=== PATIENT | female | born 1930 | race Caucasian/White ===

== ENCOUNTER 2016-11-14 11:59 | Inpatient (IN) | payer MEDICARE, MEDICAID ==
[~2016-11-14] VITALS: Ht 165.1 cm; Wt 59.9 kg
[2016-11-14] MEDS ORDERED: CO-E100C PO (13:26)
[2016-11-14] MEDS ORDERED: MILKSUS PO (13:26)
[2016-11-14] MEDS ORDERED: DILT180C74 PO (13:26)
[2016-11-14] MEDS ORDERED: ACID1CAP PO (13:26)
[2016-11-14] MEDS ORDERED: MAGN400T5 PO (13:26)
[2016-11-14] MEDS ORDERED: DRON40TA PO (13:26)
[2016-11-14] MEDS ORDERED: CARV3.12 PO (13:26)
[2016-11-14] MEDS ORDERED: BUME1TAB27 PO (13:26)
[2016-11-14] MEDS ORDERED: FOLI1TAB4 PO (13:26)
[2016-11-14] MEDS ORDERED: FERR325T3 PO (13:26)
[2016-11-14] MEDS ORDERED: PANT40TA2 PO (13:26)
[2016-11-14] MEDS ORDERED: LEXA1TAB PO (13:26)
[2016-11-14] MEDS ORDERED: VITA100067 PO (13:26)
[2016-11-14] MEDS ORDERED: ZOCO10TA PO (13:26)
[2016-11-14] MEDS ORDERED: CRANCAP10 PO (13:26)
[2016-11-14] MEDS ORDERED: APAP325T4 PO (13:26)
[2016-11-14] MEDS ORDERED: BENZ200C53 PO (13:26)
[2016-11-14] MEDS ORDERED: SITA50TAB PO (13:26)
[2016-11-14] MEDS ORDERED: PEPT262T2 PO (13:26)
[2016-11-14] MEDS ORDERED: K-TA1TAB PO (13:26)
[2016-11-14] MEDS ORDERED: MECL-86 PO (13:26)
[2016-11-14] MEDS ORDERED: VITA10002 PO (13:26)
[2016-11-14] MEDS ORDERED: ZOFR4TAB3 PO (13:26)
[2016-11-14] MEDS ORDERED: FLUT1SPR2 (13:26)
[2016-11-14] MEDS ORDERED: VITA500C10 PO (13:26)
[2016-11-14] MEDS ORDERED: SUCR1TA PO (13:26)
[2016-11-14] MEDS ORDERED: OMEG300C3 PO (13:26)
[2016-11-14] MEDS ORDERED: NS 1,000 ML IV SCH (14:00)
[2016-11-14 14:02] LABS: INR 0.99
--- NOTE | 2016-11-14 14:22 | REP ---
Portable chest, single AP view, the patient semi upright, 02:16 p.m.: Comparison 10/15/2016. There is a large infiltrate involving the inferior half of the right lung as an interval change. There is a large infiltrate in the inferior one third of the left lung, as an interval change. Cardiomegaly, sternotomy wires and dual-chamber pacemaker are again identified, unchanged. Impression: Bilateral infiltrates. Cardiomegaly, sternotomy wires and pacemaker. Surgical clips are again incidentally noted at the base of the neck bilaterally Signed by Raheem Otto MD 11/14/2016 02:13 P
[2016-11-14] MEDS ORDERED: MORPHINE 2 MG/ML 1ML SYRINGE IV PRN (15:45)
[2016-11-14] MEDS ORDERED: ELIQ2.5T PO (15:49)
[2016-11-14] MEDS ORDERED: ONDA4TAB5 PO (15:56)
--- NOTE | 2016-11-14 16:32 | REP ---
CT of the chest without IV contrast: Comparisons are the chest CT dated 08/29/2016 and portable plain film study of the chest earlier today. There is a large right pleural effusion, similar in size to the comparison CT of 08/29/2016, resulting in the increased radiodensity inferiorly in the right hemithorax on the portable study earlier today. There is a small left pleural effusion similar size to the comparison chest CT, resulting in the increased density inferiorly in the left lung on the portable study earlier today. There is compression atelectasis of the lung adjacent to each pleural effusion. There are patchy subsegmental confluent infiltrates in the right upper lobe, not present on the comparison CT. There are no left upper lobe infiltrates. Cardiomegaly and pacemaker are unchanged. In the upper abdomen there are calculi in the gallbladder. The gallbladder was not included on the comparison CT. The remainder of the visualized upper abdominal contents are unremarkable. Impression: Bilateral pleural effusions as described, unchanged from the CT of 08/29/2016. Multiple confluent patchy subsegmental infiltrates in the right upper lobe, not present on the comparison CT. Compression atelectasis of the lung adjacent to the pleural effusions is again identified. There is cholelithiasis. Cardiomegaly and pacemaker are unchanged. Signed by Raheem Otto MD 11/14/2016 04:23 P
--- NOTE | 2016-11-14 16:56 | HPE ---
DATE OF ADMISSION: 11/14/2016 Ms. Smith is a patient of Dr. Good. CHIEF COMPLAINT: Fall. SUMMARY OF HER PRESENTATION: This is an 86-year-old who last night was going to the bathroom around 1:30 to 2:00 a.m. like she does every night. She had recently moved her bed into a new position and was using her walker on an unfamiliar path and ran it into the door frame. She let go with one hand and fell down onto her left side and it hurt. She had difficulty getting up. She had some nausea and vomiting overnight, stayed down all night and was found this morning in her assisted-living situation. She was sent to the emergency department at [facility] for evaluation and was found to have a left hip fracture. She was transferred to [facility] Emergency Room for further evaluation and I was called for admission. She has not had significant pain since she has been in the emergency department. She does not have chest pain or shortness of breath. She does have a history of angina but has had a negative stress test which was done in February of 2016. She has ejection fraction of 49% as documented in February of 2016. She does not frequently have chest pain. She has a poor exercise tolerance. She walks around assisted-living with a walker but does not walk any great distance. PAST MEDICAL HISTORY: Notable for rib fracture, hypertension, congestive heart failure, left ventricular ejection fraction of 49%, upg-pbwtucf-ybwanaazm diabetes, history of anemia, history of recent gastrointestinal (GI) bleed with hospitalization, currently off anticoagulation for what is presumed to be underlying atrial fibrillation. She does have a ventricular pacemaker. She has had an aortic valve replacement which is not mechanical. She had a coronary artery bypass graft (CABG) approximately 14 years ago, bilateral carotid endarterectomies, hysterectomy, knee replacement in 2005, pacemaker placement two years ago, it looks like a ventricular pacer, toe joint replacement, tonsillectomy. FAMILY HISTORY: Unremarkable. SOCIAL HISTORY: She was of [place] descent. 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 ALLERGIES: She has allergies noted to DEMEROL, MILK, MSG, OPIATES which induce vomiting, PENICILLIN which induces vomiting. She does not tolerate PLAVIX. MEDICATIONS: At home are listed as: - Tylenol - vitamin C - Tessalon Perles - Bumex - Coreg - coenzyme Q12 - vitamin B12 - diltiazem ER 180 mg by mouth daily - Multaq 400 mg by mouth twice a day - Lexapro 10 mg by mouth at bedtime - ferrous sulfate 325 mg by mouth daily - Flonase inhaled daily - folic acid 1 mg daily - magnesium oxide daily - meclizine 25 mg daily - milk of magnesia - Zofran - Protonix - potassium chloride - simvastatin - Januvia - sucralfate - vitamin D - acidophilus - Pepto Bismol - cranberry plus vitamin C - Leonard-3 REVIEW OF SYSTEMS: Notable for no headache. No visual changes. No runny nose. No sore throat. She has been feeling well recently. She has not had any angina or shortness of breath recently. No abdominal pain. No urinary discomfort. Otherwise, unremarkable. PHYSICAL EXAMINATION: Temperature is 97.3, pulse 69, respiratory rate 16, blood pressure 175/90, 95% on room air. Intake and output is unremarkable at this point. She is awake, appropriately interactive, pleasantly conversant and reasonable historian, although she is dosing on and off during the examination. She is quite engaging and funny. Head is normocephalic. Pupils are equal, round, and reactive. Anicteric, noninjected. Mucous membranes are moist. Neck is supple. Breathing is symmetrically diminished without wheezes, rales, or rhonchi. No accessory muscle use. Heart is distant sounding, normal S1, S2. I do not appreciate a murmur, although I would anticipate hearing one. Abdomen is soft, doughy, nontender. Radial pulses are 2+. There is no lower extremity edema. LABORATORY DATA: There are laboratories available for me to review from [facility] which show a white cell count of 11.5, hemoglobin 11.9, and platelets 204. Sodium 143, potassium 4.1, chloride 100, carbon dioxide 28, BUN 25, creatinine 1.6, glucose of 172. CK and troponin negative, repeated negative here. Shoulder x-ray shows no fracture. Elbow x-ray shows no fracture. Left hip x-ray shows intratrochanteric fracture with varus deformity of the left hip. PT 13.4, INR 1.02, PTT 28.8. There was no chest x-ray done at the [facility]. EKG here shows what looks like underlying atrial flutter with V pacing. X-ray shows evidence of bilateral infiltrates, cardiomegaly, sternotomy wires and pacemaker. CT scan of the chest has been ordered to further evaluate. ASSESSMENT: This is an 86-year-old with left intratrochanteric hip fracture status post mechanical fall with significant past medical history. PLAN: 1. Orthopedic. The patient will require surgical correction of the left hip in order to resume her previous level of function. She is interested in pursuing that. I have consulted Dr. Morales in that regard. 2. Cardiovascular. The patient would appear to have decompensated heart failure based on the x-ray. On CT chest, there is no change from previous. Physical exam is unremarkable. She clinically does not have decompensated heart failure. There is no reason to further delay her procedure. She obviously, represents an increased risk for perioperative complications including myocardial infarction, stroke, pneumonia, prolonged recovery and even . I have discussed this with the very lucid and sharp patient and her daughter at bedside, 3. The patient has diabetes. She will be started on insulin during her stay. 4. The patient has a history of hypertension. We will put hold parameters on her medications. We will avoid angiotensin-receptor germán (ARB) and angiotensin-converting enzyme (RADHA) inhibitor for now. 5. Deep vein thrombosis (DVT) prophylaxis, per orthopedics. 6. The patient has doting family at bedside. UT[facility] PSYCHIATRIC CENTERHemant
[2016-11-14 17:04] LABS: BASO % 0.3 % (0.0-1.0); EOS % 0.3 % (0.0-3.0); LARGE UNSTAINED CELL # 0.1 K/mm3 (0.0-0.4); LARGE UNSTAINED CELL % 1.1 % (0.0-4.0); LYMPH # 0.9 K/mm3 (1.5-4.5); LYMPH % 7.1 % (24.0-44.0); MEAN CORPUSCULAR HEMOGLOBIN 31.2 pg (27.0-33.0); MEAN CORPUSCULAR HGB CONC 32.5 g/dl (32.0-36.5); MEAN CORPUSCULAR VOLUME 96.1 fl (80.0-96.0); MONO # 0.8 K/mm3 (0.0-0.8); MONO % 6.5 % (0.0-5.0); NEUTROPHILS # 10.3 K/mm3 (1.8-7.7); NEUTROPHILS % 84.6 % (36.0-66.0); PLATELET COUNT, AUTOMATED 213 k/mm3 (150-450); RED CELL DISTRIBUTION WIDTH 16.3 % (11.5-14.5); WHITE BLOOD COUNT 12.2 K/mm3 (4.0-10.0)
[2016-11-14 17:15] LABS: CALCIUM LEVEL 8.9 MG/DL (8.8-10.2); CREATININE FOR GFR 1.82 MG/DL (0.55-1.02); GLOMERULAR FILTRATION RATE 27.9 (>32); POTASSIUM SERUM 4.3 MEQ/L (3.5-5.1)
--- NOTE | 2016-11-14 20:10 | ECGEPIP ---
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
[2016-11-14] MEDS ORDERED: CARVedilol 3.125 MG TAB PO SCH (21:00)
[2016-11-14] MEDS ORDERED: DRONEDARONE 400 MG TAB (MULTAQ) PO SCH (21:00)
[2016-11-14 22:00] VITALS: BP 175/84
[2016-11-14] MEDS ORDERED: FUROSEMIDE 40 MG/4 ML VIAL (J1940) IV ONE (22:15)
[2016-11-14] MEDS ORDERED: ACETAMINOPHEN 325 MG TAB PO PRN (22:15)
[2016-11-14] MEDS: SIMVASTATIN 10 MG TAB PO SCH (23:17)
[2016-11-14] MEDS: PANTOPRAZOLE 40MG TAB (PROTONIX) PO SCH (23:17)
[2016-11-14] MEDS ORDERED: METOCLOPRAMIDE INJ 10MG/2ML VIAL (J2765) IV PRN (23:45)
--- NOTE | 2016-11-14 23:52 | IPNPDOC ---
Text Note Date of Service The patient was seen on 11/14/16. NOTE Evening resident and attending were paged that patient suddenly vomited after taking beta germán this evening. We have ordered stat EKG, cardiac makers, aspiration precaution and blood cultures x2. Will monitor closely for resolution of her symptoms. Patient has been discussed with Dr. Harrell. VS,Fishbone, I+O VS, Fishbone, I+O Laboratory Tests 11/14/16 16:36 Red Blood Count 3.88 L, Mean Corpuscular Volume 96.1 H, Mean Corpuscular Hemoglobin 31.2, Mean Corpuscular Hemoglobin Concent 32.5, Red Cell Distribution Width 16.3 H, Neutrophils (%) (Auto) 84.6 H, Lymphocytes (%) (Auto ) 7.1 L, Monocytes (%) (Auto) 6.5 H, Eosinophils (%) (Auto) 0.3, Basophils (%) ( Auto) 0.3, Neutrophils # (Auto) 10.3 H, Lymphocytes # (Auto) 0.9 L, Monocytes # (Auto) 0.8, Eosinophils # (Auto) 0.0, Basophils # (Auto) 0.0, Calcium Level 8.9 Vital Signs Date Time Temp Pulse Resp B/P (MAP) Pulse Ox O2 Delivery O2 Flow Rate FiO2 11/14/16 23:19 73 175/84 11/14/16 22:00 97.3 18 94 Nasal Cannula 2.0 GME ATTESTATION GME ATTESTATION My preceptor for this patient encounter was physically present in the building during the encounter and was fully available. As needed, all aspects of the patient interview, examination, medical decision making process, and medical care plan development were reviewed and approved by the preceptor. Preceptor is aware and concurs with the plan as stated in the body of this note and will attest to such by his/her cosignature. COURTNEY PARR DO Nov 14, 2016 23:52
[2016-11-14 23:54] VITALS: BP 135/75
[2016-11-15] MEDS: ONDANSETRON 4MG/2ML VIAL (J2405) IV PRN ×2 (00:26→21:43)
[2016-11-15 06:00] VITALS: BP 138/87
[2016-11-15] MEDS: METOPROLOL TART 25 MG TABLET PO SCH ×3 (06:00→18:54)
[2016-11-15] MEDS: ISOSORBIDE DIN (ISORDIL) 10 MG TAB PO SCH ×3 (06:00→21:46)
[2016-11-15 06:45] LABS: BASO % 0.4 % (0.0-1.0); EOS # 0.1 K/mm3 (0.0-0.50); EOS % 0.5 % (0.0-3.0); LARGE UNSTAINED CELL # 0.2 K/mm3 (0.0-0.4); LARGE UNSTAINED CELL % 1.5 % (0.0-4.0); LYMPH # 1.4 K/mm3 (1.5-4.5); LYMPH % 8.5 % (24.0-44.0); MEAN CORPUSCULAR HEMOGLOBIN 30.8 pg (27.0-33.0); MEAN CORPUSCULAR HGB CONC 32.3 g/dl (32.0-36.5); MEAN CORPUSCULAR VOLUME 95.2 fl (80.0-96.0); MONO % 6.7 % (0.0-5.0); NEUTROPHILS # 11.7 K/mm3 (1.8-7.7); NEUTROPHILS % 82.4 % (36.0-66.0); PLATELET COUNT, AUTOMATED 198 k/mm3 (150-450); RED CELL DISTRIBUTION WIDTH 16.6 % (11.5-14.5); WHITE BLOOD COUNT 14.2 K/mm3 (4.0-10.0)
[2016-11-15] MEDS ORDERED: CLINDAMYCIN 600 MG in APPROPRIATE DILUENT 1 EA IV SCH (07:00)
[2016-11-15 07:12] LABS: CALCIUM LEVEL 9.1 MG/DL (8.8-10.2); CREATININE FOR GFR 2.01 MG/DL (0.55-1.02); GLOMERULAR FILTRATION RATE 24.9 (>32); POTASSIUM SERUM 4.3 MEQ/L (3.5-5.1)
[2016-11-15] MEDS: CO-ENZYME Q10 50 MG CAP PO SCH (09:00)
[2016-11-15] MEDS: SUCRALFATE 1 GM TAB PO SCH ×2 (09:00→21:45)
--- NOTE | 2016-11-15 09:20 | CR ---
DATE OF CONSULTATION: 11/15/2016 Mrs. Smith is rather delightful, 86-year-old female who was admitted yesterday for hip fracture. I was asked to see the patient for cardiac clearance. The patient normally follows with Dr. 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 She has a history of coronary artery bypass surgery, in 2001, in [place] and reportedly had a nuclear stress test in February 2016 that was negative for ischemia. This is based on admission note. I was not able to find any document supporting this history. Patient was already cleared for surgery by Medicine but then anesthesia cancelled the procedure because there were concern about congestive heart failure. Patient does have bilateral pleural effusions on chest x-ray, right larger than left, and she also has very high brain natriuretic peptide (BNP). When I talked to the patient, she is lying virtually flat in the hospital bed. Denies any chest pain or shortness of breath. She says that at her baseline she is able to ambulate around her room in assisted living or senior facility without major difficulty. She does not recall having any recent cardiac problems. She did have relatively recent gastrointestinal (GI) bleeding that led to discontinuation of Eliquis. I am not sure about its timing. PAST MEDICAL HISTORY: 1. Coronary artery disease as above. 2. Carotid artery disease status post carotid endarterectomies. 3. History of sick sinus syndrome status post pacemaker placement (probably Biotronik). 4. Recent GI bleed. 5. History of bilateral pleural effusions that have known to be chronic. 6. Chronic systolic/diastolic CHF. SURGICAL HISTORY: 1. CABG and AVR 2. Carotid endarterectomies. 3. Hysterectomy. 4. Knee replacement 2005. 5. Pacemaker placement per patient about 4 years ago. 6. Tonsillectomy. 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 She is a and lives [place]. Her daughter reported lives nearby. FAMILY HISTORY: No longer relevant considering her age. She reports INTOLERANCE or ALLERGY to DEMEROL, MILK, OPIATES, PENICILLIN, and PLAVIX. HOME MEDICATIONS: - Tylenol - vitamin C - Bumex - Coreg (unclear dose) - Coenzyme Q12 - vitamin B12 - diltiazem extended release 180 - Multaq 400 twice a day - Lexapro 10 at bedtime - iron sulfate - Flonase - folic acid - magnesium - Zofran - Protonix - potassium - simvastatin - Januvia - sucralfate - vitamin D - Pepto-Bismol - [place]-3 fatty acids REVIEW OF SYSTEMS: She denies any history of stroke. She denies any recent fever. She did have an episode of vomiting last night. No abdominal pain. No recent chest pain. No syncope. No palpitations. Recent GI bleeding as above. No genitourinary symptoms. No recent peripheral edema. The rest is negative. PHYSICAL EXAMINATION: Patient is an elderly white female. She appears to be in no distress. Alert and oriented times three. Her jugular venous pulse (JVP) is at least 7 cm above clavicle. Lungs reveal diminished breath sounds over both bases, much more on the right than left. Heart exam reveals regular rhythm. There is paradoxically splitting second heart sound and there is high-pitched murmur best heard over left sternal border about 2-3/6 intensity. I do not appreciate gallop as such. Abdomen is soft, nontender. No peripheral edema. Peripheral pulses are weak but detectable. Neurologically, she is alert, oriented and appropriate and I do not appreciate any focal weakness. No skin lesions. Laboratory bolivar: As of this morning, hemoglobin is 12.3, hematocrit 38, platelet count 198,000 and WBC count 14.2. Basic metabolic panel: Sodium 143, potassium 4.3, BUN 35, creatinine 2 for calculated GFR 25 and glucose 160. She has several sets of cardiac enzymes as marginally elevated. Troponin at 0.25 but CK and CK-MB are negative. Her BNP was 3000. Chest x-ray and CT of the chest revealed bilateral pleural effusions, right bigger than left, with some patchy infiltrates in right upper lobe. There is presence of dual-chamber pacemaker. ECG reveals presence of atrial flutter with ventricular pacing. ASSESSMENT AND PLAN: Mrs. Smith is an 86-year-old female who has established CAD with remote history of coronary artery bypass surgery and reportedly relatively recent nuclear stress test in February 2016 negative for ischemia and demonstrating left ventricular ejection fraction (LVEF) 49%. She has what looks like underlying atrial fibrillation or flutter and is principally ventricularly paced. She now has a hip fracture and needs open reduction, internal fixation (ORIF). I spoke with Dr. Morales and it would be a fairly straightforward surgery. Estimated duration approximately 1 hour. I think it is probably prudent to wait at least 1 day with the surgery. I would obtain the relevant information from Dr. Good, most importantly the results of supposedly recent cardiac evaluation. I also am going to change her medicine somewhat. She does have congestive heart failure and consequently use of Multaq is relatively contraindicated. She in any case is in atrial fibrillation/flutter and the medicine has not been effective. I am also going to discontinue Cardizem and leave her on metoprolol for rate control purposes. Provided her hemoglobin stays stable and she does not have additional troponin elevation, I think we will probably let her go for surgery tomorrow as she certainly would have a very poor prognosis if not operated. If we can get the information by this afternoon, I would not object to proceed with surgery even this afternoon provided she and her family are aware of clearly increase risk on account of congestive heart failure and underlying coronary artery disease. I would apply a magnet over her pacemaker for the duration of cautery. ABBY
--- NOTE | 2016-11-15 09:39 | REP ---
Renal ultrasound: The kidneys are atrophic size. The right kidney measures 8.7 x 4.9 x 4.1 cm. Left kidney measures 8.6 x 3.6 x 4.8 cm. Renal cortical echogenicity is unremarkable bilaterally. There is no hydronephrosis, calculus, mass or cyst on the right or the left. Bladder ultrasound balloon The bladder is nondistended and cannot be evaluated at this time. Impression: The kidneys are atrophic size bilaterally. No hydronephrosis. Otherwise, negative renal ultrasound. Signed by Raheem Otto MD 11/15/2016 09:30 A
[2016-11-15] MEDS: PANTOPRAZOLE 40MG TAB (PROTONIX) PO SCH ×2 (10:18→21:45)
[2016-11-15] MEDS: MAGNESIUM OXIDE 400 MG TAB (MAG-OX) PO SCH (10:18)
[2016-11-15] MEDS: VITAMIN D 1,000 INTERNATIONAL UNITS TABLET PO SCH ×2 (10:18→21:45)
[2016-11-15] MEDS: FERROUS SULFATE 325MG TAB PO SCH (10:18)
[2016-11-15] MEDS: FOLIC ACID 1 MG TAB PO SCH (10:19)
[2016-11-15] MEDS: CYANOCOBALAMIN 500 MCG TAB PO SCH (10:19)
[2016-11-15] MEDS ORDERED: FUROSEMIDE 40 MG/4 ML VIAL (J1940) IV ONE (12:00)
--- NOTE | 2016-11-15 13:45 | REP ---
PORTABLE CHEST X-RAY: SINGLE VIEW. HISTORY: Status post thoracentesis. Comparison chest x-ray 11/14/2016. FINDINGS: Mild to moderate cardiomegaly is observed. Mitral annular calcification is seen. A bipolar pacemaker is seen in the right heart, and median sternotomy wires are noted. There is fairly heavy vascular calcification including the subclavian and axillary arteries bilaterally. There is no evidence of pneumothorax on either side. There are clips in the soft tissues of the neck bilaterally. IMPRESSION: Cardiomegaly. No evidence of pneumothorax. Signed by Mayito Hooper MD 11/15/2016 04:42 P
[2016-11-15 14:04] LABS: RBC PLEURAL FLUID < 10 (<10mm3 cells/uL); TNC PLEURAL FLUID 203 cells/uL (0-20)
[2016-11-15 14:11] LABS: BF DIFF IF INDICATED? YES (NO)
[2016-11-15 14:13] LABS: CC BF DIFF EXAM CYTOCENTRIFUGE
[2016-11-15 14:30] LABS: LDH, BODY FLUID 85 U/L (NOT ESTABLISHED); TOTAL PROTEIN, BODY FLUID 1.7 G/DL (NOT ESTABLISHED)
[2016-11-15] MEDS ORDERED: GLUCAGON FOR INJ 1 MG VIAL (J1610) SC PRN (15:45)
[2016-11-15] MEDS ORDERED: DEXTROSE 50% 50 ML SYRINGE IV PRN (15:45)
[2016-11-15] MEDS ORDERED: GLUCOSE 4 GM CHEW TABLET PO PRN (15:45)
[2016-11-15] MEDS: HumaLOG INSULIN (NovoLOG) PER UNIT SC SCH ×2 (18:54→21:00)
--- NOTE | 2016-11-15 20:42 | IPN ---
DATE: 11/15/2016 Patient seen and examined. Admitted yesterday with left intertrochanteric fracture. Currently patient comfortable. Reported hungry. Denies any shortness of breath, fevers, chills, chest pain, pressure, or discomfort. Baseline patient stated that she is ambulatory. Does have history of congestive heart failure (CHF). VITAL SIGNS: Temperature 97.1, pulse 78, respirations 18, blood pressure 120/80, pulse oximetry 94% on 2 liters nasal cannula. LABORATORY DATA: WBC 14.2, hemoglobin and hematocrit 12.3/38.1, platelets 198. Chemistry: Sodium 144, potassium 4.2, chloride 108, bicarbonate 25, BUN 35, creatinine 2.01. PHYSICAL EXAMINATION: GENERAL: Patient elderly, frail in no acute distress. HEENT: Normocephalic, atraumatic. PULMONARY: Diminished breath sounds, right lower base. No wheezes, rales, or rhonchi. CARDIAC: Regular rate and rhythm. Normal S1, S2. ABDOMEN: Soft and nontender. Positive bowel sounds. EXTREMITIES: No edema, bilateral lower extremities. Dorsalis pedis (DP), posterior tibialis (PT) pulses intact bilateral. ASSESSMENT AND PLAN: This is an 86-year-old female patient with underlying medical history of hypertension, rib fracture, congestive heart failure with systolic and diastolic dysfunction, ejection fraction (EF) of 35-40%, uvo-[id number] diabetes, history of anemia, and also recent gastrointestinal (GI) bleed with hospitalization. Subsequently anticoagulation was discontinued. Atrial fibrillation with also pacemaker. Had an aortic valve replacement, bioprosthetic. Coronary artery bypass graft (CABG) in the past, 14 years ago, bilateral carotid endarterectomy, hysterectomy, knee replacement 2005, pacemaker placement 2 years ago, admitted status post mechanical fall with left intertrochanteric fractures. 1. Left intertrochanteric fractures. Orthopedics has been consulted. Radiological image appreciated. Case discussed with cardiology, Dr. Townsend. Record obtained from Dr. Good and case also discussed with Dr. England. Patient does have multiple cardiac risks for surgery, including congestive heart failure (CHF), but given the alternative of not doing the surgery would mean significant pain and immobility, which will be terminal for the patient, patient and family are aware of the risk and have elected to proceed. Patient is intermediate to high risk for intermediate-risk procedure. Will hold patient's Multaq given is contraindicated in patient with CHF. Patient was diuresed today for CHF. Thoracentesis was done to optimize the patient. Coreg has been changed to metoprolol. Appreciate cardiology's assistance as well as nephrology's assistance in optimizing the patient. 2. Underlying history of CHF with systolic and diastolic dysfunction, EF of 35-40% with bioprosthetic aortic valve, atrial fibrillation with pacemaker. 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 Cardiology, Dr. Robledo, has been consulted. CT scan has been appreciated, status post thoracentesis. Patient is diuresed. Continue beta blockers. Patient is at increased risk of perioperative cardiac complications, and family is aware. Continue statin. 3. Hypertension. Continue metoprolol and Isordil. Monitor the blood pressure. Adjust as needed. 4. Dyslipidemia. Continue statin. 5. Diabetes, nns-ukafsxv-obzcreajv, holding oral medication. Insulin as per protocol. 6. Acute on chronic renal insufficiency, likely secondary to acute stress from the fall and fracture and also CHF. Nephrology has been consulted. Will monitor closely. Holding angiotensin-converting enzyme (RADHA) and angiotensin receptor blockers (ARBs). 7. Atrial fibrillation. Continue beta blockers. Patient has history of bleeding. Will hold anticoagulation at this time. 8. History of gastrointestinal (GI) bleed. Continue proton pump inhibitor (PPI) and Carafate. 9. Deep vein thrombosis (DVT) prophylaxis. Heparin subcutaneous, given patient now is at increased risk for DVT. Will hold heparin in the morning. DISPOSITION: Pending surgery.
[2016-11-15] MEDS: ACETAMINOPHEN TAB 650MG DOSE (2X325MG) PO PRN (21:44)
[2016-11-15] MEDS: ESCITALOPRAM OXALATE 10 MG TAB (LEXAPRO) PO SCH (21:45)
[2016-11-15] MEDS: SIMVASTATIN 10 MG TAB PO SCH (21:45)
[2016-11-15] MEDS: ASCORBIC ACID 500 MG TAB PO SCH (21:45)
[2016-11-15] MEDS: HEPARIN SOD (PORCINE) 5000 UNITS/ML VIAL SQ SCH (21:45)
[2016-11-15 22:00] VITALS: BP 137/75
[2016-11-16] VITALS (12 sets, daily range): BP systolic 130–165; BP diastolic 65–92; O2SAT 98–99
[2016-11-16] MEDS: METOPROLOL TART 25 MG TABLET PO SCH ×5 (01:29→18:29)
[2016-11-16] MEDS: HEPARIN SOD (PORCINE) 5000 UNITS/ML VIAL SQ SCH ×3 (06:00→21:08)
[2016-11-16] MEDS: ISOSORBIDE DIN (ISORDIL) 10 MG TAB PO SCH ×3 (06:00→21:10)
[2016-11-16 07:17] LABS: BASO % 0.2 % (0.0-1.0); EOS # 0.1 K/mm3 (0.0-0.50); EOS % 0.5 % (0.0-3.0); LARGE UNSTAINED CELL # 0.2 K/mm3 (0.0-0.4); LARGE UNSTAINED CELL % 1.5 % (0.0-4.0); LYMPH # 1.1 K/mm3 (1.5-4.5); MEAN CORPUSCULAR HGB CONC 32.9 g/dl (32.0-36.5); MEAN CORPUSCULAR VOLUME 94.3 fl (80.0-96.0); MONO # 0.9 K/mm3 (0.0-0.8); MONO % 7.8 % (0.0-5.0); NEUTROPHILS # 8.8 K/mm3 (1.8-7.7); PLATELET COUNT, AUTOMATED 175 k/mm3 (150-450); RED CELL DISTRIBUTION WIDTH 16.7 % (11.5-14.5); WHITE BLOOD COUNT 10.9 K/mm3 (4.0-10.0)
[2016-11-16 07:18] LABS: CALCIUM LEVEL 8.7 MG/DL (8.8-10.2); CREATININE FOR GFR 2.04 MG/DL (0.55-1.02); GLOMERULAR FILTRATION RATE 24.5 (>32)
[2016-11-16] MEDS: HumaLOG INSULIN (NovoLOG) PER UNIT SC SCH ×4 (07:30→21:11)
--- NOTE | 2016-11-16 08:17 | RO ---
DATE OF PROCEDURE: 11/15/2016 PREPROCEDURE DIAGNOSIS: Pleural effusion. POSTPROCEDURE DIAGNOSIS: Pleural effusion, right sided. PROCEDURE: Right sided thoracentesis. SURGEON: Dulce Maria Munoz MD PHYSICIAN SUPERVISING: Chato Chong DO SKI MAKER: ANESTHETIC: 1% local lidocaine. ESTIMATED BLOOD LOSS: Minimal. SEDATION: None. VENTILATION: None. DESCRIPTION OF PROCEDURE: Consent was obtained. A time out was done. Given the patient has a left sided intertrochanteric fracture, the patient was made to sit up on the bed with the patient's right shoulder elevated, ultrasound probe was used to detect fluids between the patient's ribs and site was cleaned with ChloraPrep and draped in a sterile manner. After marking the site with ultrasound guidance, 1% lidocaine was used for local anesthetic. First the superficial skin then deep injection, keeping negative pressure, stopped when clear yellow fluid was obtained. Subsequently, the need was removed. A blade was used to make a skin incision right above the patient's rib horizontally. Subsequently, thoracentesis catheter was inserted, stopped when fluid return was obtained and catheter was inserted over the needle and the trocar needle was removed. Approximately 950 mL of yellow clear fluid was removed. The procedure was terminated when no more fluid removal was possible. Fluid collection was sent. The catheter was removed with the patient exhaling. X-ray was obtained. The patient tolerated the procedure with no complications. X-ray negative for pneumothorax.
[2016-11-16] MEDS: FOLIC ACID 1 MG TAB PO SCH (08:30)
[2016-11-16] MEDS: FERROUS SULFATE 325MG TAB PO SCH (08:30)
[2016-11-16] MEDS: CO-ENZYME Q10 50 MG CAP PO SCH (08:30)
[2016-11-16] MEDS: SUCRALFATE 1 GM TAB PO SCH ×2 (08:30→21:10)
[2016-11-16] MEDS: VITAMIN D 1,000 INTERNATIONAL UNITS TABLET PO SCH ×2 (08:32→21:10)
[2016-11-16] MEDS: PANTOPRAZOLE 40MG TAB (PROTONIX) PO SCH ×2 (08:32→21:10)
[2016-11-16] MEDS: MAGNESIUM OXIDE 400 MG TAB (MAG-OX) PO SCH (08:32)
[2016-11-16] MEDS: CYANOCOBALAMIN 500 MCG TAB PO SCH (08:32)
[2016-11-16] MEDS ORDERED: PROPOFOL 200 MG/20 ML VIAL As Ordered ONE (09:37)
[2016-11-16] MEDS ORDERED: fentaNYL 100 MCG/2 ML INJECTION (J3010) As Ordered ONE (09:37)
[2016-11-16] MEDS ORDERED: LIDOCAINE 2% INJ 100 MG/5 ML SDV (FOR ANES.) As Ordered ONE (09:37)
[2016-11-16] MEDS ORDERED: MIDAZOLAM INJ 2 MG/2 ML VIAL (J2250) As Ordered ONE (09:38)
[2016-11-16] MEDS ORDERED: CLINDAMYCIN 600 MG/50 ML PREMIX BAG As Ordered ONE (09:46)
[2016-11-16] MEDS ORDERED: ceFAZolin 2 GM/D5W 50 ML IV BAG (J0690) As Ordered ONE (10:01)
[2016-11-16] MEDS ORDERED: KETAMINE HCL 200 MG/20 ML VIAL As Ordered ONE (10:06)
[2016-11-16] MEDS ORDERED: PHENYLephrine HCL 500 MCG/5 ML (100MCG/ML) SYRINGE (J2370) As Ordered ONE (10:46)
--- NOTE | 2016-11-16 11:49 | ECGEPIP ---
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
[2016-11-16] MEDS ORDERED: ONDANSETRON 4MG/2ML VIAL (J2405) IV PRN (12:30)
[2016-11-16] MEDS ORDERED: LR 1,000 ML IV SCH (12:30)
[2016-11-16] MEDS ORDERED: PERCOCET 5MG/325MG TAB PO PRN (12:30)
[2016-11-16] MEDS ORDERED: fentaNYL 100 MCG/2 ML INJECTION (J3010) IV PRN (12:30)
--- NOTE | 2016-11-16 12:31 | REP ---
Left hip: 13 views in the OR. History: ORIF left hip. 1 minute 48 seconds of fluoroscopy time is reported. Findings: A sequence of 13 last image hold fluoro spot radiographs of the left hip and femur document intramedullary justin and pin fixation for left hip fracture. Signed by Mayito Hooper MD 11/16/2016 02:47 P
[2016-11-16] MEDS: ACETAMINOPHEN TAB 650MG DOSE (2X325MG) PO PRN ×2 (14:46→19:04)
--- NOTE | 2016-11-16 17:04 | IPN ---
DATE: 11/16/2016 SUBJECTIVE: I saw Mrs. Smith in the recovery room shortly after she came from operating room (OR) after open reduction, internal fixation (ORIF). Apparently the surgery was uneventful from anesthesiology perspective. The patient was resting comfortably in horizontal position. She was still very somnolent and sedated and could not provide any reasonable history. OBJECTIVE: Blood pressure was 142/84, heart rate 70s. It was atrial fibrillation with ventricular pacing. Saturation was 100% on room air. Her jugular venous pulse (JVP) was quite high, at least 5-6 cm. Lungs though were reasonably clear and air movement was good. I did not sit up the patient for the test so the auscultation was somewhat limited. Heart exam is unchanged, reveals paradoxically splitting second heart sound and there is still murmur best heard over the precordial area about 2/6. Abdomen is soft, nontender. No significant peripheral edema was noted. LABORATORY As of this morning, her hemoglobin was 10.9, hematocrit 33, platelet count 175,000 and WBC count 10.9. Basic metabolic panel potassium four, BUN 43, creatinine two and glucose 125. ASSESSMENT AND PLAN: Mrs. Smith is an 86-year-old female who has established coronary artery disease with remote history of coronary artery bypass grafting and aortic valve replacement and at least moderate left ventricular systolic dysfunction and chronic systolic congestive heart failure. She presented with broken hip and underwent repair. The surgery itself was uneventful. Hemodynamically she remains stable and there are no problems with oxygenation. I believe she can return to [place] for recovery. I would recommend to continue beta blockers as is being done. We will watch her fluid balance and make sure that she does not get overly positive. She is not anticoagulated due to recent gastrointestinal (GI) bleeding. Her thrombotic risk is certainly very high as is the risk of stroke. Currently just prophylactic dose of heparin is being utilized, together with mechanical deep venous thrombosis (DVT) prophylaxis tools. I would recommend to get more records from Dr. Good to get a better idea what was the nature and how severe the GI bleeding and as to whether we can reintroduce anticoagulation. As far as the heart failure is concerned, her fluid balance is actually relatively neutral and her renal function holds steady. She is virtually asymptomatic so I do not believe that we have to introduce diuretics, especially because I am somewhat concerned about her poor oral intake. Once she starts eating and drinking properly, I think the medication can be reintroduced. She is on aspirin and beta germán and statin. ABBY
[2016-11-16] MEDS ORDERED: ceFAZolin 1GM INJ (J0690) IM SCH (18:00)
[2016-11-16] MEDS: ceFAZolin SOD 1 GM in D5W MINI-BAG PLUS 50 ML IV SCH (18:58)
[2016-11-16] MEDS: ASCORBIC ACID 500 MG TAB PO SCH (21:10)
[2016-11-16] MEDS: ESCITALOPRAM OXALATE 10 MG TAB (LEXAPRO) PO SCH (21:11)
[2016-11-16] MEDS: SIMVASTATIN 10 MG TAB PO SCH (21:11)
[2016-11-17] VITALS (20 sets, daily range): BP systolic 104–150; BP diastolic 57–71; O2SAT 91–100
[2016-11-17] MEDS: METOPROLOL TART 25 MG TABLET PO SCH ×4 (00:12→18:04)
[2016-11-17] MEDS ORDERED: ceFAZolin 1GM INJ (J0690) IV SCH (02:00)
[2016-11-17] MEDS: ceFAZolin SOD 1 GM in D5W MINI-BAG PLUS 50 ML IV SCH (02:30)
[2016-11-17] MEDS: ISOSORBIDE DIN (ISORDIL) 10 MG TAB PO SCH ×3 (05:01→22:49)
[2016-11-17] MEDS: HEPARIN SOD (PORCINE) 5000 UNITS/ML VIAL SQ SCH ×3 (05:02→22:50)
[2016-11-17 05:51] LABS: BASO % 0.1 % (0.0-1.0); EOS % 0.3 % (0.0-3.0); LARGE UNSTAINED CELL # 0.1 K/mm3 (0.0-0.4); LARGE UNSTAINED CELL % 1.7 % (0.0-4.0); LYMPH # 1.1 K/mm3 (1.5-4.5); LYMPH % 11.5 % (24.0-44.0); MEAN CORPUSCULAR HGB CONC 32.4 g/dl (32.0-36.5); MEAN CORPUSCULAR VOLUME 95.9 fl (80.0-96.0); MONO # 0.6 K/mm3 (0.0-0.8); MONO % 6.8 % (0.0-5.0); NEUTROPHILS # 6.6 K/mm3 (1.8-7.7); NEUTROPHILS % 79.5 % (36.0-66.0); PLATELET COUNT, AUTOMATED 168 k/mm3 (150-450); RED CELL DISTRIBUTION WIDTH 16.7 % (11.5-14.5); WHITE BLOOD COUNT 8.3 K/mm3 (4.0-10.0)
[2016-11-17 06:08] LABS: CALCIUM LEVEL 8.8 MG/DL (8.8-10.2); CREATININE FOR GFR 1.97 MG/DL (0.55-1.02); GLOMERULAR FILTRATION RATE 25.5 (>32); POTASSIUM SERUM 3.8 MEQ/L (3.5-5.1)
--- NOTE | 2016-11-17 06:59 | IPN ---
DATE: 11/16/2016 Patient seen and examined. Currently comfortable. Denies any chest pain or shortness of breath. Ready for operating room (OR) later today. Denies any chest pain, pressure, discomfort, shortness of breath. Nothing by mouth after midnight. VITAL SIGNS: Temperature 97.6, pulse 69, respirations 18, blood pressure 141/92, pulse oximetry 100% on 2 liters nasal cannula. LABORATORY DATA: WBC 10.9, hemoglobin and hematocrit (H and H) 10.9/33.1, platelets 175. Chemistry: Sodium 145, potassium 4, chloride 108, bicarbonate 25, BUN 43, creatinine 2.04. PHYSICAL EXAMINATION: GENERAL: Patient alert, comfortable, in no acute distress. HEENT: Normocephalic, atraumatic. Pale. PULMONARY: Diminished breath sounds bilateral. No wheezes, rales or rhonchi. CARDIAC: Regular rate and rhythm. Normal S1, S2. ABDOMEN: Soft, nontender. Positive bowel sounds. EXTREMITIES: No edema bilateral lower extremities. Dorsalis pedis (DP) and posterior tibial (PT) pulses intact. ASSESSMENT AND PLAN: This is an 86-year-old female patient with underlying medical history of hypertension, refractory congestive heart failure with systolic and diastolic dysfunction, ejection fraction (EF) of 35-40%, non-insulin dependent diabetes, history of anemia, also with gastrointestinal (GI) bleed, previously hospitalized for GI bleed, subsequently, anticoagulation was discontinued, has a pacemaker, aortic valve replacement with bioprosthetic valve, coronary artery bypass graft (CABG) in the past, 14 years ago, bilateral carotid endarterectomy, hysterectomy, knee replacement 2005, pacemaker placement two years ago, admitted status post mechanical fall with left intertrochanteric fracture. PROBLEMS: 1. Left anterior intertrochanteric fracture secondary to mechanical fall. Orthopedic consulted. Going for surgery later today. Case also discussed with cardiology, Dr. Townsend, who has obtained records from Dr. Good, patient's primary luggage maker and also discussed with Dr. England. Patient currently optimized for surgery. Thoracentesis has been done. Continue beta blockers. Postoperative management, attending status, weightbearing, as per orthopedic. Pain medication is as per orthopedics. Will discuss with orthopedic surgery in regards to deep venous thrombosis (DVT) prophylaxis. Currently, patient on heparin subcutaneously. 2. Underlying history of congestive heart failure (CHF). Systolic and diastolic dysfunction, ejection fraction (EF) of 35-40%, with bioprosthetic aortic valve. Atrial fibrillation with pacemaker. Records obtained from cardiology, Dr. Good's office. Cardiology, Dr. Townsend, has been consulted. CT scan has been appreciated. Status post thoracentesis. Fluids appreciated. Will continue to diurese the patient after surgery. Continue beta germán. Patient on metoprolol. Continue statin. 3. Hypertension. Continue metoprolol. Monitor blood pressure. Adjust as needed. 4. Dyslipidemia. Continue statin. 5. Diabetes. Not insulin dependent. Holding oral medication. Insulin as per protocol. Consistent carbohydrate diet. 6. Acute on chronic renal insufficiency. Likely secondary to acute stress after fall and fracture. Also with congestive heart failure (CHF). Nephrology has been consulted. Holding angiotensin-converting enzyme (RADHA) inhibitor inhibitors. Will continue to monitor. 7. Atrial fibrillation. Continue beta germán. Patient is not on anticoagulation due to history of gastrointestinal (GI) bleed. Might have to start anticoagulation given patient's deep venous thrombosis (DVT) prophylaxis after surgery. 8. History of gastrointestinal (GI) bleed. Continue proton pump inhibitor (PPI) and Carafate. 9. Deep venous thrombosis (DVT) prophylaxis. Currently, patient on heparin subcutaneously. Given increased risk of deep venous thrombosis (DVT), possibly will switch to alternative agent after discussing with orthopedics. DISPOSITION: Pending clinical improvement, physical therapy (PT).
[2016-11-17] MEDS: HumaLOG INSULIN (NovoLOG) PER UNIT SC SCH ×4 (08:36→21:00)
[2016-11-17] MEDS: CYANOCOBALAMIN 500 MCG TAB PO SCH (08:36)
[2016-11-17] MEDS: ASPIRIN 81 MG ENTERIC TAB PO SCH (08:37)
[2016-11-17] MEDS: VITAMIN D 1,000 INTERNATIONAL UNITS TABLET PO SCH ×2 (08:38→22:50)
[2016-11-17] MEDS: FERROUS SULFATE 325MG TAB PO SCH (08:38)
[2016-11-17] MEDS: FOLIC ACID 1 MG TAB PO SCH (08:38)
[2016-11-17] MEDS: ACETAMINOPHEN TAB 650MG DOSE (2X325MG) PO PRN ×3 (08:38→19:53)
[2016-11-17] MEDS: SUCRALFATE 1 GM TAB PO SCH ×2 (08:39→22:50)
[2016-11-17] MEDS: PANTOPRAZOLE 40MG TAB (PROTONIX) PO SCH ×2 (08:39→22:52)
[2016-11-17] MEDS ORDERED: BUMETANIDE 1 MG TAB PO SCH (09:00)
[2016-11-17] MEDS: CO-ENZYME Q10 50 MG CAP PO SCH (10:26)
[2016-11-17] MEDS: MOM 30ML SUSPENSION UDC PO SCH (10:26)
[2016-11-17] MEDS: MIRALAX *UNIT DOSE* 17GM PACKET PO SCH (10:27)
[2016-11-17] MEDS: SENOKOT S TAB PO SCH ×2 (10:27→21:00)
[2016-11-17] MEDS: FUROSEMIDE 40 MG/4 ML VIAL (J1940) IV SCH (10:39)
--- NOTE | 2016-11-17 11:01 | CR ---
DATE OF CONSULTATION: 11/14/2016 Seen in the emergency room (ER) at the request of Dr. Farr/ER and Dr. Vega/hospitalist service. CHIEF COMPLAINT: Left hip pain. HISTORY OF PRESENT ILLNESS: She fell at home at 2 o'clock in the morning. Was found at 6 o'clock in the morning. Transferred to [facility] by emergency medical services (EMS). Evaluated by Dr. Ang at [facility]. Appreciated to have left hip intertrochanteric fracture. Transferred to [facility]. Evaluated by ER. Hospitalist consult initiated. Hospitalist medical optimization initiated. The patient complained of left hip pain, inability to ambulate. Hospital health summary and medical record is reviewed, including medical history, such as atrial fibrillation, valve replacement, pacemaker placement, previous right hip fracture, and other medical issues. Recent history of gastrointestinal (GI) bleed. The patient's family and social history as outlined in the hospital; documentation is reviewed. IMAGING STUDIES: Intertrochanteric hip fracture left. CLINICAL EXAMINATION: She is alert, easily confused, but cooperative. She is accompanied by her daughter. The skin seems to be healthy in the face, upper and lower extremities. Complexion is slightly dusky. Normocephalic, atraumatic. No shortness of breath. No abdominal distention. Left lower extremity shortened, rotated, palpable pulse, sensate, wiggles toes. IMPRESSION: Left intertrochanteric hip fracture displaced. Multiple medical comorbidities. RECOMMENDATIONS: Discussed the case with Dr. Vega, hospitalist service. Medical optimization was tentative. Discussed the case with Dr. Vega and Dr. Elizabeth with anesthesia. CONCLUSION: The patient would require cardiac optimization. I talked to the patient, as well as the patient's daughter, with respect to the surgical intervention. The consent was completed and reviewed in detail, including humza discussion of the procedure proposed, which will be intramedullary nail. After the intramedullary nail fixing the left hip. The risks and benefits, including not limited to , blood clots, infection, need for more surgery, limp, and other issues were discussed. Daughter signed consent as power of mergers and acquisitions attorney. Initially placed on operating room schedule for 11/14/2016. However, need for cardiac optimization will delay surgery at least one day. Postoperatively, we may consider anticoagulation and will coordinate that with hospitalist service because of history of gastrointestinal (GI) bleed. For further details, please refer to medical record.
--- NOTE | 2016-11-17 12:42 | IPN ---
DATE: 11/17/2016 Ms. Smith is doing much better today. She was able to sit on the age of the bed and stand. She denies any cardiovascular symptoms. I was able to get a lot more information today because her granddaughter who is a physical therapist was at her bedside. Blood pressure 128/60, heart rate has been in the 60s and 70s, atrial fibrillation with ventricular pacing. She is afebrile. Saturation 93% to 95% on room air. Fluid balance yesterday was documented about 900 negative. Weight 62.3 kg. She is alert, oriented and appropriate. Her jugular venous pulse (JVP) is still at least 4 cm above the clavicle. Lungs are reasonably clear to auscultation, though I hear only occasional crackle, air movement is good though. Heart examination reveals a regular rhythm with paradoxically splitting second heart sound and murmur that is unchanged. Abdomen is soft, nontender. There is no peripheral edema. Neurologically, she is generally weak but otherwise no focal weakness is noted. LABORATORY DATA: CBC: Hemoglobin 10.4, hematocrit 32, platelet count 168,000. Basic metabolic panel: Potassium 3.8, BUN 46, creatinine 2 for GFR 25, and BNP 1850 which is actually improvement since admission. ASSESSMENT AND PLAN: Ms. Smith is an 86-year-old female who has chronic systolic congestive heart failure with chronic bilateral pleural effusions. She also has chronic ischemic heart disease. She underwent open reduction and internal fixation (ORIF) of left hip yesterday. It looks like she has been recovering so far uneventfully. There are several issues though. The biggest problem that I see is the lack of anticoagulation, not only for deep vein thrombosis (DVT) prophylaxis but also for prevention of stroke in the setting of atrial fibrillation. Today, I learned from her granddaughter that she suffered fairly massive gastrointestinal (GI) bleeding, actually in September of 2016 that required transfusion of several units of blood. We do not have details what was actually the findings on endoscopy, but I think it is probably prudent to continue withholding full anticoagulation. I think it can be restarted though fairly soon. I explained to the patient and her granddaughter that the risk of stroke is certainly very high in the long run. The second issue is that of management of atrial fibrillation. In general, she was on Multaq but unfortunately this medication is relatively contraindicated in the setting of congestive heart failure and it was not effective in preventing recurrences of atrial fibrillation. Consequently, it was discontinued and replaced with metoprolol. So far, she has been almost 100% ventricular paced, indicating that the rate control is good. She has no anginal symptoms. As far as congestive heart failure is concerned, she started eating and drinking today and consequently Dr. Munoz already started her on diuretics, which I agree with. I am going to sign off on her management. Please do not hesitate to contact me if additional assistance is desired. After her discharge, she will followup with Dr. Good who has been seeing her for years. ABBY
--- NOTE | 2016-11-17 14:22 | CR ---
DATE OF CONSULTATION: 11/15/2016 REASON FOR CONSULTATION: There is acute renal failure superimposed on chronic kidney disease and clearance for hip surgery. HISTORY OF PRESENT ILLNESS: This 86-year-old female who was admitted to [facility] yesterday due to left hip fracture caused by a fall at home. The patient is in need for hip surgery. She is noticed to have congestive heart failure and a serum creatinine of 2.0. A nephrology consultation was requested this morning for clearance for hip surgery. PAST MEDICAL AND SURGICAL HISTORY: Significant for: 1. History of longstanding diabetes. 2. Hypertension. 3. History of congestive heart failure with ejection fraction of about 49%. 4. History of atrial fibrillation. 5. History of anemia. 6. Recent history of GI bleed. 7. History of stage III to stage IV of chronic kidney disease. 8. History of bilateral pleural effusions greater on the right than the left. 9. History of coronary artery disease, status post CABG. 10. History of bilateral carotid endarterectomies. 11. History of pacemaker placement. PAST SURGICAL HISTORY: Past surgical history is significant for coronary artery bypass surgery, knee replacement, hysterectomy, bilateral endarterectomy of carotids, tonsillectomy, knee replacement and pacemaker placement. 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 She does not smoke or drink. Family history is negative for any genetic kidney disease. There is no history of end-stage renal disease. ALLERGIES: The patient has allergy to Demerol, MSG, milk and opiates. She also has history of allergy to penicillin and Plavix. Home medications. HOME MEDICATIONS: Her home medications include Tylenol, Bumex, Coreg, coenzyme Q 10, vitamin B12, Diltiazem ER 180 mg daily, Multaq 400 mg twice a day, Lexapro 10 mg daily, ferrous sulfate 325 mg daily, folic acid 1 mg daily, magnesium oxide 400 mg daily, Protonix 40 mg daily, simvastatin 10 mg at bedtime, Zofran 4 mg as needed for nausea, metoprolol, metoclopramide 5 mg every 6 hours as needed, metoprolol 25 mg every 6 hours, vitamin D 1000 units daily, Carafate 1 gram twice a day. REVIEW OF SYSTEMS: The patient denies any fever or chills. There is chronic shortness of breath. Ears, nose and throat are unremarkable. Cardiovascular system is significant for history of atrial fibrillation, congestive heart failure and coronary artery disease. She denies any chest pain or palpitations. Respiratory system is significant for bilateral pleural effusions and shortness of breath. She denies any hemoptysis or pleuritic type of chest pain. GI system is significant for recent history of GI bleed. She denies any abdominal pain, vomiting or diarrhea. system is negative for dysuria or hematuria. She currently has a Frey catheter in place. Endocrine system is significant for type 2 diabetes. There is no history of hypothyroidism. Psychosocial system is significant for depression. Neurological system is negative for seizures or stroke. Hematological system is significant for anemia with history of recent GI bleed. Skin is negative for rash or ulcers. Musculoskeletal system is significant for left hip fracture secondary to fall. She has chronic back pain. PHYSICAL EXAMINATION: Temperature 97 degrees Fahrenheit, heart rate 70 per minute and respiratory rate 18 per minute. Blood pressure 138/87 mmHg and oxygen saturation 94% on 2 liters oxygen. Head is atraumatic. Pupils are equal and reactive to light and sclera is anicteric. There is no oral thrush or ulcers in mucous membranes are moist and healthy. Neck is supple and JVD is only mildly elevated. There is no thyroid enlargement and trachea is midline. Heart: Sounds are irregular in rhythm and with a systolic murmur grade 2/6. There is no pericardial friction rub. Lungs: Have significantly diminished breath sounds at right lower one-third. She has bibasilar rales. Abdomen is soft and nontender. There is no palpable organomegaly and bowel sounds are normal. Extremities have no cyanosis or clubbing. Her left lower extremity is internally rotated. DIAGNOSTIC STUDIES: Her renal ultrasound done this morning showed a right kidney 8.7 cm and left kidney 8.6 cm in size without any hydronephrosis. Chest CT scan was done yesterday which showed bilateral pleural effusions right greater than the left. Subsegmental infiltrates in the right upper lobe and some compression atelectasis noted. There is also gallstones and cardiomegaly. PROBLEMS: 1. Acute kidney injury superimposed on chronic kidney disease. Her underlying chronic kidney disease is probably early stage III or early stage IV. Some worsening of kidney function is most likely related to congestive heart failure. She did receive one dose of Lasix yesterday. Her chest x-ray from yesterday did show some pulmonary vascular congestion and alveolar infiltrates. Her renal ultrasound did not show any hydronephrosis and she currently has a Frey catheter in place. From a renal standpoint, she has no contraindication for hip surgery. Her electrolytes are within normal range and she does not have any metabolic acidosis. 2. Congestive heart failure. Her volume status is probably slightly decompensated. BNP level was elevated. Her ejection fraction is known to be 49%. I will give her one more dose of Lasix 40 mg and monitor her closely. He is nothing by mouth so her intake is none at this point. r intake is none at this point. problem is bilateral pleural effusions. She has a large pleural effusion on the right side and I would recommend to do a thoracentesis prior to surgery in order to optimize her pulmonary status. I will not try to use high-dose diuretics because of risk of worsening kidney function and intraoperative or postoperative hypotension. 3. Anemia. Her anemia is not a problem at this point. She does have history of GI bleed recently. However at this point she seems to be doing well. I thank you for involving me in the care of Mrs. Smith. I will follow her along with you.
--- NOTE | 2016-11-17 15:23 | IPN ---
DATE: 11/17/2016 The patient is seen and examined. No acute events overnight. Postoperative day number one. Denies any chest pain, pressure or discomfort, fevers, or chills. VITAL SIGNS: Temperature 97.8, pulse 69, respirations 18, blood pressure 128/60, pulse oximetry 93% on two liters nasal cannula. LABORATORY DATA: WBC 8.3, hemoglobin and hematocrit 10.4/31.1, platelets 168. Chemistry: Sodium 144, potassium 3.8, chloride 106, bicarbonate 28, BUN 46, creatinine 1.9. PHYSICAL EXAMINATION: GENERAL: The patient is alert, comfortable, in no acute distress. HEENT: Normocephalic, atraumatic. Pale. PULMONARY: Diminished breath sounds bilaterally. No wheezes, rales or rhonchi. CARDIAC: Regular rate and rhythm with normal S1, S2. ABDOMEN: Soft, nontender. Positive bowel sounds. EXTREMITIES: No edema of bilateral lower extremities. Dorsalis pedis (DP) and posterior tibial (PT) pulses intact. ASSESSMENT AND PLAN: This is an 86-year-old female patient with underlying medical history of hypertension, refractory congestive heart failure with systolic and diastolic dysfunction, ejection fraction (EF) of 35% to 40%, [id number] diabetes, history of anemia, also with gastrointestinal (GI) bleed, previously hospitalized for GI bleed, subsequently anticoagulation was discontinued, has a pacemaker, aortic valve replacement with bioprosthetic valve, coronary artery disease with coronary artery bypass graft (CABG) 14 years ago, bilateral carotid endarterectomy, hysterectomy, knee replacement in 2005, pacemaker placement two years ago, admitted status post mechanical fall with left intertrochanteric fracture. PROBLEMS: 1. Left intertrochanteric fracture secondary to mechanical fall. Orthopedic consulted. Status post surgery. Weightbearing, pain regimen, and physical therapy as per orthopedic. Continue physical therapy. The patient potentially needs retirement placement. Continue beta blockers. On heparin for anticoagulation and will require it for four weeks. Given history of gastrointestinal (GI) bleed, we will leave the patient on heparin subcutaneous. 2. Underlying history of congestive heart failure with systolic and diastolic dysfunction, ejection fraction (EF) of 35% to 40%, bioprosthetic aortic valve, atrial fibrillation with pacemaker. Records obtained from cardiology, Dr. Good's office. Dr. Townsend has been consulted. The patient's Multaq has been discontinued. Currently on metoprolol. Status post CT thoracentesis. Fluids appreciated. Continue diuresis. Continue statin. Brain natriuretic peptide (BNP) appreciated. 3. Hypertension. Continue metoprolol, isosorbide dinitrate. Continue to monitor blood pressure. Adjust as needed. 4. Dyslipidemia. Continue statin. 5. Diabetes, [id number], type 2. Holding oral medication. Insulin as per protocol. Consistent-carbohydrate diet. 6. Acute on chronic renal insufficiency. Nephrology consulted. Likely secondary to stress of underlying disease versus cardiorenal. Followup with nephrology's recommendations. Monitor blood urea nitrogen (BUN), creatinine, and electrolytes. Avoid angiotensin-converting enzyme (RADHA) inhibitor and angiotensin-receptor blockers (ARBs). 7. Atrial fibrillation. Continue beta germán and metoprolol. Patient not on anticoagulation given history of GI bleed. 8. History of GI bleed. Continue proton pump inhibitor (PPI) and Carafate. 9. Deep venous thrombosis (DVT) prophylaxis. Heparin subcutaneously. Will require heparin subcutaneously for four weeks given increased risk of bleeding from recent GI bleed. Followup orthopedics as outpatient. DISPOSITION: Pending clinical improvement and physical therapy. Likely will need short-term rehabilitation versus longterm facility.
[2016-11-17] MEDS: ESCITALOPRAM OXALATE 10 MG TAB (LEXAPRO) PO SCH (22:49)
[2016-11-17] MEDS: SIMVASTATIN 10 MG TAB PO SCH (22:49)
[2016-11-17] MEDS: ASCORBIC ACID 500 MG TAB PO SCH (22:50)
[2016-11-18] MEDS: METOPROLOL TART 25 MG TABLET PO SCH ×3 (00:36→12:47)
[2016-11-18 05:28] VITALS: BP 133/63
[2016-11-18 05:34] LABS: BASO % 0.2 % (0.0-1.0); EOS # 0.1 K/mm3 (0.0-0.50); EOS % 1.3 % (0.0-3.0); LARGE UNSTAINED CELL # 0.1 K/mm3 (0.0-0.4); LARGE UNSTAINED CELL % 2.2 % (0.0-4.0); LYMPH # 1.2 K/mm3 (1.5-4.5); LYMPH % 15.8 % (24.0-44.0); MEAN CORPUSCULAR HEMOGLOBIN 31.4 pg (27.0-33.0); MEAN CORPUSCULAR HGB CONC 32.7 g/dl (32.0-36.5); MONO # 0.5 K/mm3 (0.0-0.8); MONO % 6.9 % (0.0-5.0); NEUTROPHILS # 4.8 K/mm3 (1.8-7.7); NEUTROPHILS % 73.5 % (36.0-66.0); PLATELET COUNT, AUTOMATED 147 k/mm3 (150-450); RED CELL DISTRIBUTION WIDTH 16.8 % (11.5-14.5); WHITE BLOOD COUNT 6.5 K/mm3 (4.0-10.0)
[2016-11-18 05:55] LABS: CALCIUM LEVEL 8.7 MG/DL (8.8-10.2); CREATININE FOR GFR 1.89 MG/DL (0.55-1.02); GLOMERULAR FILTRATION RATE 26.7 (>32); PHOSPHORUS LEVEL 3.1 MG/DL (2.5-4.9); POTASSIUM SERUM 3.6 MEQ/L (3.5-5.1)
--- NOTE | 2016-11-18 06:33 | IPN ---
DATE: 11/16/2016 SUBJECTIVE: The patient was not seen today morning. She had already left the room for the operating room (OR) by the time I entered the room. However, her labs, medications, and vital signs were reviewed today. OBJECTIVE: VITAL SIGNS: Today morning temperature 97.3 degrees Fahrenheit, blood pressure is 138/76, pulse 67, respiratory rate of 17. She was saturating 97% on room air. INTAKE AND OUTPUT: Urine output was 875 mL overnight. Weight in the bed scale is not available. PHYSICAL EXAMINATION: The patient was not examined today morning. She had already left the room. LABORATORY DATA: CBC showed WBC 10.9, hemoglobin 10.9, platelets of 175. BMP showed sodium 145, potassium four, chloride 108, bicarbonate 25, BUN 43, creatinine two. GFR 24.5. Calcium 8.7. MICROBIOLOGY: Blood cultures and body fluid cultures are negative so far. Pleural fluid Gram's stain was negative for any organisms. CURRENT INPATIENT MEDICATIONS: The patient's medications were all reviewed by me. There is no change in the medications today as compared with yesterday. She got one dose of Lasix 40 mg intravenous (IV) yesterday. ASSESSMENT: 86-year-old female with congestive heart failure, atrial fibrillation, recent left hip fracture, and pleural effusion status post thoracentesis with acute kidney injury on chronic kidney disease stage III. PLAN: 1. Congestive heart failure: The patient's brain natriuretic peptide (BNP) was more than 3000 two days ago. The patient was given a dose of Lasix 40 mg IV yesterday. She will be again evaluated after the surgery tomorrow and further need to give diuretics will be decided once the patient is evaluated after the surgery. 2. Acute kidney injury superimposed on chronic kidney disease: The patient's creatinine on admission was 1.8. It was two yesterday, and it is staying stable around two. Okay to continue the diuresis at this time. Rest of the change in medication will be done after patient is examined and evaluated at the bedside. 3. Left hip fracture. The patient has gone to the operating room (OR) for left hip surgery.
[2016-11-18] MEDS: HEPARIN SOD (PORCINE) 5000 UNITS/ML VIAL SQ SCH ×3 (07:03→19:37)
[2016-11-18] MEDS: ISOSORBIDE DIN (ISORDIL) 10 MG TAB PO SCH ×2 (07:04→13:13)
[2016-11-18] MEDS: ACETAMINOPHEN TAB 650MG DOSE (2X325MG) PO PRN ×4 (07:05→23:29)
[2016-11-18] MEDS: HumaLOG INSULIN (NovoLOG) PER UNIT SC SCH ×4 (07:15→20:55)
[2016-11-18 07:35] VITALS: BP 95/52
[2016-11-18] MEDS ORDERED: POTASSIUM CHLORIDE 10 MEQ SR TABLET PO ONE (08:15)
[2016-11-18] MEDS: MOM 30ML SUSPENSION UDC PO SCH (09:00)
[2016-11-18] MEDS: SENOKOT S TAB PO SCH ×2 (09:00→19:34)
[2016-11-18] MEDS: MIRALAX *UNIT DOSE* 17GM PACKET PO SCH (09:00)
[2016-11-18] MEDS: FUROSEMIDE 40 MG/4 ML VIAL (J1940) IV SCH (09:30)
[2016-11-18] MEDS: CYANOCOBALAMIN 500 MCG TAB PO SCH (09:31)
[2016-11-18] MEDS: SUCRALFATE 1 GM TAB PO SCH ×2 (09:31→19:34)
[2016-11-18] MEDS: ASPIRIN 81 MG ENTERIC TAB PO SCH (09:31)
[2016-11-18] MEDS: CO-ENZYME Q10 50 MG CAP PO SCH (09:31)
[2016-11-18] MEDS: FOLIC ACID 1 MG TAB PO SCH (09:31)
[2016-11-18] MEDS: FERROUS SULFATE 325MG TAB PO SCH (09:31)
[2016-11-18] MEDS: VITAMIN D 1,000 INTERNATIONAL UNITS TABLET PO SCH ×2 (09:32→19:30)
[2016-11-18] MEDS: PANTOPRAZOLE 40MG TAB (PROTONIX) PO SCH ×2 (09:32→19:30)
[2016-11-18 12:00] VITALS: BP 130/58
[2016-11-18] MEDS: SLF 3 ML SYR IV SCH ×2 (13:15→19:38)
[2016-11-18] MEDS ORDERED: SLF 3 ML SYR IV PRN (13:15)
--- NOTE | 2016-11-18 13:35 | RO ---
DATE OF PROCEDURE: 11/16/2016 PREPROCEDURE DIAGNOSIS: Left three part intertrochanteric femur fracture. POSTPROCEDURE DIAGNOSIS: Left three part intertrochanteric femur fracture. PROCEDURE: Open reduction, internal fixation (ORIF) of left femur with a cephalomedullary nail. SURGEON: Dr. Keanu Wong VEHICLE INSURANCE AGENT: None. ANESTHESIA: Spinal. IV FLUIDS: Lactated Ringers. ESTIMATED BLOOD LOSS: 75 mL. IMPLANTS: Synthes intramedullary TFNA 235 x 11 mm, 130 degree neck angle. 100 mm helico blade and 40 mm interlocking screw. CLOSURE: Trevor. INDICATIONS: Laura is an 86-year-old female with multiple medical comorbidities who suffered a mechanical fall. X-rays revealed a displaced intertrochanteric femur fracture. It took multiple days to get her medically optimized, but finally cardiac and renal clearance was obtained. I had a conversation with the patient and her daughter, who is the healthcare proxy, about operative versus nonoperative treatment and various surgical options. I recommended open reduction, internal fixation (ORIF) with cephalomedullary nail. They understood that the risks, included but were not limited to bleeding, infection, damage to adjacent neurovascular structure, deep vein thrombosis (DVT)/pulmonary embolism, nonunion, malunion, hardware failure, hardware irritation, weakness, stiffness, avascular necrosis, failure to return to previous activity level, risks of anesthesia, including , and need for additional surgery. Written informed consent was obtained. DESCRIPTION OF PROCEDURE: The patient was identified in the preoperative holding area and the left hip was initialed by myself. She was brought to the operating room and spinal anesthesia induced. She received 2 grams of IV cefazolin for antibiotic prophylaxis within one hour of incision. The patient was then placed supine on the radiolucent fracture table and all bony prominences were well padded. The left foot was placed into the traction boot. The right leg was padded and positioned against the central beam, essentially with the hips in a scissored position. Traction was then applied to the left leg with internal rotation and adduction. A successful preliminary closed reduction was obtained and confirmed on AP, oblique and lateral views using the large C-Arm. The left hip was then prepped and draped in a normal sterile fashion with the shower curtain drape. Prior to incision, a time out was performed in which myself and operating staff confirmed the patient's name, medical record number, date of , correct side, site, and procedure. A 3 cm longitudinal incision was made with a 10 blade just proximal to the tip of the greater trochanter. Electrocautery for hemostasis. Blunt dissection down to the fascia. The fascia was carefully opened with curved Ellis scissors. The tip of the greater trochanter was palpated and a threaded guidewire was positioned at the tip of the greater trochanter. Appropriate positioning confirmed on AP and lateral views using the C-Arm. Guidewire was malleted down to the level of the lesser trochanter and the appropriate position was confirmed. Soft tissue protector and opening reamer were then used to create an opening in the proximal femur. The ball tip guidewire was then placed through that opening down to the patella. I then decided on an intermediate length nail. A Synthes 235 x 11 mm, 130 degree angle TFNA was opened and secured to the inserted. The nail was inserted over the guidewire to the appropriate depth. Guidewire was removed and the trocars with the targeting arm were used to place the guide pin for the helico blade. Appropriate position for the guide pin was confirmed on AP and lateral views using fluoroscopy. I was able to obtain a center-center position on AP and lateral views. The reamer was used over the guidewire. A 100 mm length helico blade was felt to be the most appropriate and this was malleted over the guidewire to the appropriate depth. Fracture reduction was fine tuned with tensioning through the nail. The locking screw was then secured with the flexible reamer. Appropriate depth of the helico blade determined on AP, lateral and oblique views. Attention was then turned to the interlocking screw and using the targeting arm, placed the 40 mm fully threaded cortical screw through the static slot in the distal aspect of the nail. There was excellent fixation. The recording artist was removed and final images taken AP lateral to the hip, tip of the nail, and at the knee. The incisions were then extensively irrigated with normal saline. The deep fascia was closed with figure of eight #0 Vicryl suture, as was the middle incision. All incisions were irrigated and then the space closed with #2-0 Vicryl suture and then a subcuticular closure of #2-0 Vicryl, followed by trevor. Sterile bandage with Adaptic, 4 x 4's and Tegaderm dressing was applied. All counts were correct times two. The drapes were taken down. The patient was carefully transferred back to her hospital bed. She tolerated the procedure well with no anesthetic issues during the case. COMPLICATIONS: None. DISPOSITION: The patient is weight bearing as tolerated on the left lower extremity with the walker. She will remain on the hospitalist service. She will have heparin for deep vein thrombosis (DVT) prophylaxis and was written for 24 hours of antibiotic prophylaxis.
--- NOTE | 2016-11-18 16:03 | REP ---
Femur series: Five views. History: Status post open reduction internal fixation. Comparison radiographs are from 11/14/2016. Findings: Five views of the left femur demonstrate an intramedullary justin and a femoral head pin transfixing the intertrochanteric fracture in anatomic alignment. Vascular calcification is seen. Medial surgical clips are noted. Diffuse osteopenia is seen. There is some osteoarthritis at the left knee. Signed by Mayito Hooper MD 11/18/2016 05:12 P
[2016-11-18] MEDS ORDERED: SENN1TAB2 PO (16:31)
[2016-11-18] MEDS ORDERED: METO25TA4 PO (16:31)
[2016-11-18] MEDS ORDERED: HEPA50VL SQ (16:31)
[2016-11-18] MEDS ORDERED: ASPI81TAEC PO (16:31)
[2016-11-18] MEDS: SIMVASTATIN 10 MG TAB PO SCH (19:30)
[2016-11-18] MEDS: ESCITALOPRAM OXALATE 10 MG TAB (LEXAPRO) PO SCH (19:30)
[2016-11-18] MEDS: ASCORBIC ACID 500 MG TAB PO SCH (19:31)
[2016-11-18 22:00] VITALS: BP 137/64
--- NOTE | 2016-11-18 22:18 | DSES ---
DATE OF ADMISSION: 11/14/2016 DATE OF DISCHARGE: PRIMARY CARE PROVIDER: Dr. Good ORTHOPEDIC SURGEON: Dr. Wong and Dr. Dionicio Morales NEPHROLOGISTS: Dr. England and Dr. Anguiano COTTON BAG SEWER: Dr. Townsend FINAL DIAGNOSES: 1. Left intertrochanteric fracture due to mechanical fall. 2. Congestive heart failure with systolic and diastolic dysfunction, ejection fraction 35-40%. 3. Right-sided pleural effusion. 4. Hypertension. 5. Dyslipidemia. 6. Diabetes type 2. 7. Acute on chronic renal insufficiency. 8. Atrial fibrillation. 9. History of gastrointestinal (GI) bleed. HISTORY OF PRESENT ILLNESS: This is ab 86-year-old female patient with underlying medical history of rib fractures, hypertension, congestive heart failure, left ventricular ejection fraction of 40%, non-insulin diabetes, history of anemia, recent history of gastrointestinal (GI) bleed with hospitalization, anticoagulation for atrial fibrillation was discontinued, ventricular pacemaker, aortic valve replacement with bioprosthetic valve, coronary artery bypass graft (CABG), bilateral carotid endarterectomy, hysterectomy, knee replacement 2015, pacemaker replacement two years ago, tonsillectomy. Patient was going to the bathroom the night before admission, like she does every night, recently moved her bed into a new position and was using her walker in an unfamiliar path and ran into the door frame and she let go of one hand and fell down onto her left side and hurt herself. She had difficulty getting up. She also felt nausea with vomiting overnight, stayed down all night and was found in the morning in her assisted living situation. She was sent to the emergency room in [place] for evaluation, found to have a left intertrochanteric hip fracture and was transferred to [facility] for further evaluation and hospitalist called for admission. Patient denied any chest pain, shortness of breath. Does have history of angina with a negative stress test 02/2016, ejection fraction of 40% and also had frequent chest pain, poor exercise tolerance. Walks well in assisted living with a walker. HOSPITAL COURSE: Patient was admitted to the hospital. Irrigator Gravity Flow and supervisor tumblers were consulted for medical optimization. Record obtained from primary care provider. Patient is high to intermediate risk, but given alternative of not doing surgery would be associated with very poor quality of life and potentially, this would be a terminal event for the patient. Patient's family has elected to proceed with surgery. A thoracentesis was done to remove pleural fluid for therapeutic and diagnostic purposes. Patient was diuresed prior to surgery. Medication was adjusted by cardiology. Patient's Multaq had been discontinued. Beta germán had been adjusted. Deep venous thrombosis (DVT) prophylaxis had been provided and subsequently, patient was optimized to go forward with surgery status post orthopedic surgery. Physical therapy was done. Pain medication was provided. Deep venous thrombosis (DVT) prophylaxis was provided. Patient currently is comfortable, tolerated oral, ready for short-term rehabilitation. VITAL SIGNS: Temperature 97.4, pulse 69, respirations 30, blood pressure 130/58, pulse oximetry 96% on room air. PHYSICAL EXAMINATION: GENERAL: Patient comfortable, alert, in no acute distress. HEENT: Normocephalic, atraumatic, pale. PULMONARY: Bilateral clear to auscultation. No wheezes, rales or rhonchi. CARDIAC: Regular rate and rhythm. Normal S1, S2. ABDOMEN: Soft, nontender. Positive bowel sounds. EXTREMITIES: No edema bilateral lower extremity . Dorsalis pedis (DP), posterior tibial (PT) pulses intact. Arrangements for patient to go to short-term rehabilitation at [place]. Discharge was delayed for short-term rehabilitation arrangement. LABORATORY DATA: WBC 6.5, hemoglobin and hematocrit (H and H) 9.5/29, platelets 147. Chemistry: Sodium 142, potassium 3.6, chloride 104, bicarbonate 32, BUN 49, creatinine 1.89. DISCHARGE MEDICATIONS: - aspirin 81 mg by mouth daily - heparin subcutaneously every 12 hours for the next four weeks, discussed with orthopedic surgeon given patient's recent history of gastrointestinal (GI) bleed, will likely give oral anticoagulation agents, given increased risk of bleeding and given that medication would stay in the system longer. Will elect to keep the patient on heparin subcutaneously. - metoprolol 25 mg by mouth twice a day - Senna Plus 8.6/50 mg by mouth twice a day - acetaminophen 650 mg by mouth every 4 hours as needed - acidophilus one capsule by mouth daily - vitamin C by mouth daily - benzonatate 200 mg by mouth twice a day as needed - Pepto-Bismol 30 mL by mouth every 4 hours as needed - Bumex 1 mg by mouth twice a day - Coenzyme Q10 100 mg by mouth daily - Cranberry juice 1 capsule by mouth daily - vitamin B12 1500 mcg by mouth daily - Lexapro 10 mg by mouth at bedtime - ferrous sulfate 325 mg by mouth daily - Flonase nasal spray daily - folic acid 1 mg by mouth daily - magnesium oxide 400 mg by mouth daily - meclizine 25 mg by mouth as needed - milk of magnesia 30 mL by mouth as needed - Braselton 3 fatty acid capsule daily - Zofran 4 mg by mouth every 4 hours as needed - Protonix 40 mg by mouth twice a day - potassium chloride 20 mEq by mouth three times a day - Zocor 10 mg by mouth at bedtime - Januvia 10 mg by mouth daily - Carafate 1 gram by mouth twice a day - vitamin D 1000 units by mouth twice a day Patient's home medication of diltiazem, Coreg and Multaq has been discontinued. DISCHARGE INSTRUCTIONS: Patient is instructed to follow up with primary care provider in seven days, cardiology in seven days, orthopedics in two weeks. Return to hospital if symptoms worsen. Follow up hemoglobin and hematocrit (H and H) and basic metabolic panel as outpatient. Discharge has been delayed due to arrangement of short-term rehabilitation placement. Likely discharge 11/19/2016.
[2016-11-18 23:25] VITALS: BP 135/60
[2016-11-19] MEDS ORDERED: METOPROLOL TART 25 MG TABLET PO SCH
[2016-11-19] MEDS: HEPARIN SOD (PORCINE) 5000 UNITS/ML VIAL SQ SCH (05:18)
[2016-11-19] MEDS: SLF 3 ML SYR IV SCH (05:19)
[2016-11-19 06:00] VITALS: BP 144/70
--- NOTE | 2016-11-19 06:11 | IPN ---
DATE OF VISIT: 11/17/2016 This patient is seen at the bedside today. Her granddaughter and her nurse are both present. She states she feels well after her surgery yesterday. She is able to sit on the edge of the bed. She denies any chest pain or shortness of breath. She has a Frey catheter present and has been started on intravenous (IV) diuretics. REVIEW OF SYSTEMS: No fever, no chills, denies chest pain, shortness of breath, palpitations, denies nausea, vomiting or diarrhea. Frey catheter present. Denies lower extremity swelling or edema. Pain is adequately controlled. Remainder review of systems is negative. PHYSICAL EXAMINATION: VITAL SIGNS: Temperature 97.8, pulse 69, respirations 18, blood pressure 128/60, pulse oximetry 99% on nasal cannula. Previous 24 hour intake reported as 558 mL, 24 hour urine output 1400 mL, weight in bed scale 62.3 kg. GENERAL: She is alert, oriented, sitting upright in no acute distress interacting appropriately. NECK: Elevated jugular venous pulse (JVP). Supple LUNGS: Symmetrical and clear air entry bilaterally. HEART: Regular rate, systolic murmur. 2+ radial pulse. ABDOMEN: Soft, nontender, nondistended GENITOURINARY: Frey catheter in place with urine. EXTREMITIES: No peripheral edema. NEUROLOGIC: Awake, alert, oriented, appropriately conversational. Psychiatric: appropriate mood and affect. LAB DATA: Hemoglobin 10.4, white count 8.3, platelets 168. Sodium 144, potassium 3.8, carbon dioxide 28, creatinine 1.9 from 2.0 yesterday. Brain natriuretic peptide (BNP) 1850. Urine protein to creatinine ratio about 400 mg of proteinuria. IMAGING: Renal ultrasound, the kidneys are atrophic in size. The right kidney is 8.7 cm, the left kidney 8.6 cm with no hydronephrosis. Inpatient Medications reviewed by myself and notable for lasix 40mg IV daily. ASSESSMENT AND PLAN: 1. Acute kidney injury (ROSA) on chronic kidney disease (CKD) stage III. Labs from [facility] show a baseline creatinine of about 1.6. Creatinine was 2.0 and current 1.9. Renal ultrasound is compatible with chronic kidney disease without any hydronephrosis. She was previously on a home diuretic regimen of Bumex 1 mg twice daily. She has currently been restarted on diuretics Lasix 40 mg intravenous (IV) daily. Her electrolytes remain stable and she is fairly euvolemic on exam with a brain natriuretic peptide (BNP) of 1860. Within the next 24 hours she can likely return to her home diuretic regimen. Urine studies show a urine protein creatinine ratio of about 400 mg. She is not on an angiotension converting enzyme (RADHA) or an angiotensin receptor germán (ARB) at home, likely due to advanced CKD and we will hold off on the same. 2. Underlying history of systolic and diastolic heart failure. Ejection fraction of about 35% with bioprosthetic aortic valve and history of atrial fibrillation with pacemaker. The patient is comfortable on room air this morning, feeling better after right sided thoracentesis with 950 mL of fluid drained. She remains on Lasix 40 IV daily and is fairly euvolemic on exam. She will continue on isosorbide dinitrate and metoprolol. She is having strict urine output monitoring with Frey catheter which can likely be discontinued in the next 24 hours. 3. Hypertension. Blood pressure is well controlled with metoprolol 25 mg every 6 hours and Isordil 10 mg every 8 hours. Avoid hypotension / borderline hypotension in this frail geriatric patient with recent surgery. 4. Chronic kidney disease care. Will check intact parathyroid hormone level and blood phosphorus. MTDD
[2016-11-19] MEDS: HumaLOG INSULIN (NovoLOG) PER UNIT SC SCH (07:30)
[2016-11-19 07:33] LABS: BASO % 0.1 % (0.0-1.0); EOS # 0.2 K/mm3 (0.0-0.50); EOS % 2.3 % (0.0-3.0); LARGE UNSTAINED CELL # 0.2 K/mm3 (0.0-0.4); LARGE UNSTAINED CELL % 2.5 % (0.0-4.0); LYMPH % 15.4 % (24.0-44.0); MEAN CORPUSCULAR HEMOGLOBIN 31.4 pg (27.0-33.0); MEAN CORPUSCULAR HGB CONC 32.5 g/dl (32.0-36.5); MEAN CORPUSCULAR VOLUME 96.8 fl (80.0-96.0); MONO # 0.4 K/mm3 (0.0-0.8); MONO % 6.5 % (0.0-5.0); NEUTROPHILS # 4.9 K/mm3 (1.8-7.7); NEUTROPHILS % 73.2 % (36.0-66.0); PLATELET COUNT, AUTOMATED 161 k/mm3 (150-450); RED CELL DISTRIBUTION WIDTH 16.6 % (11.5-14.5); WHITE BLOOD COUNT 6.7 K/mm3 (4.0-10.0)
[2016-11-19 07:59] LABS: CALCIUM LEVEL 8.5 MG/DL (8.8-10.2); CREATININE FOR GFR 1.57 MG/DL (0.55-1.02); GLOMERULAR FILTRATION RATE 33.1 (>32); POTASSIUM SERUM 3.9 MEQ/L (3.5-5.1)
[2016-11-19] MEDS: FUROSEMIDE 40 MG/4 ML VIAL (J1940) IV SCH (09:46)
[2016-11-19] MEDS: FERROUS SULFATE 325MG TAB PO SCH (09:51)
[2016-11-19] MEDS: ASPIRIN 81 MG ENTERIC TAB PO SCH (09:51)
[2016-11-19] MEDS: CYANOCOBALAMIN 500 MCG TAB PO SCH (09:51)
[2016-11-19] MEDS: ACETAMINOPHEN TAB 650MG DOSE (2X325MG) PO PRN (09:51)
[2016-11-19] MEDS: SENOKOT S TAB PO SCH (09:51)
[2016-11-19] MEDS: PANTOPRAZOLE 40MG TAB (PROTONIX) PO SCH (09:51)
[2016-11-19] MEDS: SUCRALFATE 1 GM TAB PO SCH (09:51)
[2016-11-19] MEDS: FOLIC ACID 1 MG TAB PO SCH (09:52)
[2016-11-19] MEDS: CO-ENZYME Q10 50 MG CAP PO SCH (09:52)
[2016-11-19] MEDS: MOM 30ML SUSPENSION UDC PO SCH (09:52)
[2016-11-19] MEDS: VITAMIN D 1,000 INTERNATIONAL UNITS TABLET PO SCH (09:52)
[2016-11-19] MEDS: MIRALAX *UNIT DOSE* 17GM PACKET PO SCH (09:52)
--- NOTE | 2016-11-19 15:13 | IPN ---
DATE: 11/18/2016 SUBJECTIVE: The patient is seen at the bedside today. Family is present. The patient states she feels well. She is out of bed to the chair, tolerating her diet. She does note some dizziness and lightheadedness when she attempted to stand earlier this morning. She denies shortness of breath and is comfortable when seen on room air. REVIEW OF SYSTEMS: Negative for headache, chest pain, shortness of breath, nausea, vomiting, or diarrhea. Denies lower extremity swelling. She remains with a urinary catheter in place. The patient complains of dizziness and lightheadedness when standing. Remainder ROS is negative. PHYSICAL EXAMINATION: VITAL SIGNS: Temperature 97.6, pulse 69, respiration rate 20, blood pressure 95/52, pulse oximetry 95% on room air. INTAKE AND OUTPUT: Intake 1740 mL, urine output 875 mL, positive fluid balance 865. Weight in the bed scale 62.3 kg. GENERAL: The patient is awake, alert and oriented, sitting out of bed to the chair in no acute distress. Family member is at bedside. HEENT: Normocephalic. Moist mucous membranes. She is pale. PULMONARY: Bilateral air entry with mild bibasilar rales. CARDIAC: S1,S2. Regular rate, 2+ radial pulse ABDOMEN: Soft, nontender. Positive bowel sounds. GENITOURINARY: Urinary catheter in place. EXTREMITIES: No edema of the lower extremities. LABORATORY DATA: WBC 6.5, hemoglobin 9.5, platelets 147. Sodium 142, potassium 3.6, bicarbonate 32, creatinine 1.8. ASSESSMENT AND PLAN: An 86-year-old female with congestive heart failure, atrial fibrillation, recent left hip fracture secondary to mechanical fall, and pleural effusion status post thoracentesis with acute kidney injury on chronic kidney disease (CKD), stage III. 1. Congestive heart failure with systolic and diastolic dysfunction, ejection fraction of 35% to 40% with bioprosthetic aortic valve and atrial fibrillation with pacemaker. The patient has been receiving Lasix 40 mg IV daily. She is not hypervolemic on examination. She is respiring comfortably on room air. Her daily weights continue to downtrend. She can be returned to her home diuretic regimen of Bumex 1 mg twice a day within the next 24 hours. 2. Acute kidney injury (ROSA) on CKD. The patient's creatinine is returning towards baseline 1.8 today and electrolytes remain stable. 3. Hypertension. The patient is on Isordil 10 mg by mouth every eight hours and also on Lopressor 25 mg every six hours for hypertension as well as for rate control and atrial fibrillation. She was dizzy this morning upon standing and blood pressure was 95/52. I would decrease her metoprolol to every 12 hours to avoid any hypotension, borderline hypotension in this frail, geriatric patient receiving IV diuretics and who recently had a fall. 4. Atrial fibrillation. Rate controlled with beta germán, not on anticoagulation due to recent history of gastrointestinal (GI) bleed. The plan of care was discussed with Dr. Dulce Maria Munoz. ABBY
--- NOTE | 2016-11-19 15:20 | IPNPDOC ---
Text Note Date of Service The patient was seen on 11/19/16. NOTE Patient remained hemodynamically stable with no acute changes overnight. Patient is currently being discharged to [facility]. Please see discharge summary on 11/18/[address] Munoz. Gigi ESPITIA, I+O Ggii ESPITIA, I+O Laboratory Tests 11/19/16 07:20 Red Blood Count 3.23 L, Mean Corpuscular Volume 96.8 H, Mean Corpuscular Hemoglobin 31.4, Mean Corpuscular Hemoglobin Concent 32.5, Red Cell Distribution Width 16.6 H, Neutrophils (%) (Auto) 73.2 H, Lymphocytes (%) (Auto ) 15.4 L, Monocytes (%) (Auto) 6.5 H, Eosinophils (%) (Auto) 2.3, Basophils (%) (Auto) 0.1, Neutrophils # (Auto) 4.9, Lymphocytes # (Auto) 1.0 L, Monocytes # ( Auto) 0.4, Eosinophils # (Auto) 0.2, Basophils # (Auto) 0.0, Calcium Level 8.5 L Vital Signs Date Time Temp Pulse Resp B/P (MAP) Pulse Ox O2 Delivery O2 Flow Rate FiO2 11/19/16 06:00 97.0 70 14 144/70 (94) 97 Room Air 11/17/16 20:55 2.0 I&O- Last 24 Hours up to 6 AM 11/19/16 06:00 Intake Total 1220 ml Output Total 1305 ml Balance -85 ml CRISTIN ISAACS MD Nov 19, 2016 15:20
--- NOTE | 2016-11-20 10:32 | IPN ---
DATE OF SERVICE: 11/19/2016 SUBJECTIVE: The patient is seen at the bedside today. She was lying flat in bed with one pillow. She had no complaints. She feels well with no further dizziness. She is discharge pending. Her [id number] is present at the bedside. REVIEW OF SYSTEMS: Negative for dizziness, lightheadedness, headache. Negative for chest pain, shortness of breath, palpitations. Negative for nausea, vomiting, diarrhea. Negative for lower extremity swelling. Negative for dysuria. Remainder ROS negative PHYSICAL EXAMINATION: VITAL SIGNS: Temperature 97.0, pulse 70, respiration rate 14, blood pressure 1044/70, saturating 97% on room air. Intake 1040 mL, urine output 1230 mL, negative fluid balance 440. Weight in the bed scale 59.9 kg. GENERAL: Awake, alert, oriented, lying flat in bed, in no acute distress. Family member present at bedside. HEENT: Normocephalic. Moist tongue. Extraocular muscles intact. CARDIAC: S1,S2. Regular rate / rhythm, and 2+ radial pulse PULMONARY: Bilateral symmetric air entry without rale, crackle or wheeze. ABDOMEN: Soft, nontender. Positive bowel sounds. EXTREMITIES: No edema of the lower extremities. Neurologic : no focal deficits LABORATORY DATA: WBC 6.7, hemoglobin 10.1, platelets 161. Sodium 138, potassium 3.9, bicarbonate 25. Creatinine improved to 1.5 from 1.8 yesterday. INPATIENT MEDICATIONS: Reviewed by myself. Remains on Lasix 40 IV daily and metoprolol 25 mg every 12. Her Isordil was discontinued. ASSESSMENT AND PLAN: 86-year-old female with congestive heart failure, atrial fibrillation, recent left hip fracture secondary to mechanical fall, and pleural effusion status post thoracentesis. Nephrology following for acute kidney injury (ROSA) on chronic kidney disease (CKD) stage III. 1. Congestive heart failure (CHF) with systolic and diastolic dysfunction, ejection fraction of 35-40% with bioprosthetic aortic valve and atrial fibrillation. The patient is euvolemic on exam. She is respiring comfortably on room air and able to lie flat. She is optimized from a cardiac view point. She will be sent to rehabilitation on her home diuretic regimen of Bumex 1 mg twice a day. 2. ROSA on CKD stage III. The patient's creatinine has returned towards baseline, 1.5 today and her electrolytes remain stable with a potassium of 3.9 and a bicarbonate of 25. 3. Hypertension. Her metoprolol dose was reduced as the patient was previously lightheaded with borderline hypotension. She is now being discharged on metoprolol 25 mg twice daily. MTDD
== END 2016-11-19 11:15 | disposition home or self-care (01) | DRG 481 ==
LOC: M ED 11:59 → M ED INP 15:41 → M MS5PR 20:24 → M PCU 11-16 16:06 → M MS5PR 11-18 16:01
PROVIDERS: ADMIT Internal Medicine; ATTEND Hospitalist
PROC: 0W993ZZ Drainage of Right Pleural Cavity, Percutaneous Approach (ICD-10-PCS; principal; 2016-11-15)
PROC: 0SSB04Z Reposition Left Hip Joint with Internal Fixation Device, Open Approach (ICD-10-PCS; 2016-11-16)
DX: S72.142A Displaced intertrochanteric fracture of left femur, initial encounter for closed fracture (principal); I50.42 Chronic combined systolic (congestive) and diastolic (congestive) heart failure; J90 Pleural effusion, not elsewhere classified; N18.4 Chronic kidney disease, stage 4 (severe); I13.0 Hypertensive heart and chronic kidney disease with heart failure and stage 1 through stage 4 chronic kidney disease, or unspecified chronic kidney disease; N17.9 Acute kidney failure, unspecified; E11.9 Type 2 diabetes mellitus without complications; E78.5 Hyperlipidemia, unspecified; I48.91 Unspecified atrial fibrillation; Z95.0 Presence of cardiac pacemaker; I25.10 Atherosclerotic heart disease of native coronary artery without angina pectoris; W18.30XA Fall on same level, unspecified, initial encounter; Y92.009 Unspecified place in unspecified non-institutional (private) residence as the place of occurrence of the external cause; Z79.82 Long term (current) use of aspirin; Z79.899 Other long term (current) drug therapy; Z88.0 Allergy status to penicillin; Z88.5 Allergy status to narcotic agent; Z91.011 Allergy to milk products